=== PATIENT | female | born 1940 | race Caucasian/White ===

== ENCOUNTER 2023-07-21 10:19 | Inpatient (IN) | payer OTHER ==
[2023-07-21 11:54] LABS: VENOUS BASE EXCESS 6.5 mmol/L (-2-2); VENOUS O2 SATURATION 83.1 % (70-80); VENOUS PH 7.263 (7.310-7.410)
[2023-07-21 11:59] LABS: VENOUS PCO2 80.1 mmHg (38-52)
[2023-07-21] MEDS ORDERED: methylPREDNISolone NA SUCC 125 MG/2 ML VIAL IVPUSH ONE (12:02)
[2023-07-21] MEDS ORDERED: methylPREDNISolone NA SUCC 125 MG/2 ML VIAL ONE ×2 (12:13→12:17)
[2023-07-21] MEDS ORDERED: ALBUTEROL SO4 2.5/IPRATROPIUM 0.5 INH SOL 3 ML VIAL.NEB. NEB ONE ×2 (12:13→12:34)
[2023-07-21 12:16] LABS: POTASSIUM 4.4 mmol/L (3.5-5.1)
[2023-07-21 12:21] LABS: ALBUMIN 3.3 g/dl (3.4-5.0); BASO % 0.6 % (0-2.0); CALCIUM 8.6 mg/dL (8.5-10.1); HEMOGLOBIN 10.3 GM/dL (10.7-15.3); LYMPH % 6.2 % (8-40); MCH 27.6 pg (25.7-33.7); MCHC 31.2 g/dl (32.0-36.0); MEAN CELL VOLUME 88.4 fl (80-96); MEAN PLT VOLUME 8.4 fl (7.5-11.1); MONO % 7.7 % (3.8-10.2); NEUT % 85.5 % (42.8-82.8); PLATELET COUNT 335 10^3/uL (134-434); RBC 3.74 M/mm3 (3.60-5.2); WHITE BLOOD COUNT 14.3 K/mm3 (4.0-10.0)
[2023-07-21] MEDS: ALBUTEROL SO4 2.5/IPRATROPIUM 0.5 INH SOL 3 ML VIAL.NEB. NEB SCH ×3 (12:23→13:29)
[2023-07-21 12:24] LABS: CREATININE 0.6 mg/dL (0.55-1.3)
[2023-07-21 12:26] LABS: BILIRUBIN,TOTAL 0.2 mg/dL (0.2-1); TOT PROT 6.3 g/dl (6.4-8.2)
[2023-07-21 15:49] LABS: INR 1.1 (0.83-1.09); PROTHROMBIN TIME (PATIENT) 12.7 SEC (9.7-13.0)
[2023-07-21 15:50] LABS: EPI CELLS >36 /uL (0-25.1); HYALINE CASTS 1 /uL (0-3.1); PH,URINE 5.5 (5.0-8.0); URINE APPEARANCE CLEAR; URINE BACTERIA 715 /uL (0-1359); URINE BILIRUBIN NEGATIVE (NEGATIVE); URINE COLOR YELLOW; URINE GLUCOSE (UA) NEGATIVE (NEGATIVE); URINE KETONE TRACE (NEGATIVE); URINE LEUK ESTERASE TRACE (NEGATIVE); URINE NITRITE NEGATIVE (NEGATIVE); URINE PROTEIN 1+ (NEGATIVE); URINE RBC 8 /uL (0-23.9); URINE UROBILINOGEN 0.2 mg/dL (0.2-1.0); URINE WBC 75 /uL (0-25.8)
[2023-07-21 16:48] LABS: VENOUS BASE EXCESS 6.4 mmol/L (-2-2); VENOUS O2 SATURATION 43.8 % (70-80)
[2023-07-21 16:51] LABS: VENOUS PH 7.139 (7.310-7.410)
[2023-07-21 16:52] LABS: VENOUS PCO2 116.7 mmHg (38-52)
[2023-07-21] MEDS ORDERED: RAPID SEQUENCE INTUBATION KIT NR ONE (17:02)
[2023-07-21] MEDS ORDERED: MIDAZOLAM IN 0.9 % SOD.CHLORID 1 MG/1 ML PLAST..BAG ONE (17:28)
[2023-07-21] MEDS ORDERED: MIDAZOLAM 100 MG in SODIUM CHLORIDE 100 ML IVPB SCH (17:45)
[2023-07-21] MEDS ORDERED: ETOMIDATE 40 MG/20 ML VIAL IVPUSH ONE (17:59)
[2023-07-21] MEDS ORDERED: SUCCINYLCHOLINE CHLORIDE 200 MG/10 ML VIAL IVPUSH ONE (18:00)
[2023-07-21] MEDS: FENTANYL NS IVPB 500 MCG/100 ML BAG IVPB SCH (18:20)
[2023-07-21] MEDS: MIDAZOLAM IN 0.9 % SOD.CHLORID 100 MG/100 ML PLAST..BAG IVPB SCH ×2 (18:22→19:05)
[2023-07-21] MEDS ORDERED: CEFTRIAXONE 1 GM in DEXTROSE 5%-WATER - 50 ML IVPB ONE (18:45)
[2023-07-21] MEDS ORDERED: AZITHROMYCIN IVPB 500 MG/250 ML BAG IVPB ONE (18:46)
[2023-07-21 19:38] LABS: URINE CRYSTALS FEW /hpf
[2023-07-21] MEDS: ALBUTEROL SO4 0.083% IH SOL 2.5 MG/3 ML VIAL.NEB. NEB SCH ×2 (20:46→23:42)
[2023-07-21 21:19] LABS: ARTERIAL BLD GAS O2 SATURATION 98.5 % (95-98); ARTERIAL BLOOD GAS BASE EXCESS 2.1 mmol/L (-2-2); ARTERIAL BLOOD GAS PO2 141.8 mmHg (80-100); ARTERIAL BLOOD GAS pH 7.304 (7.350-7.450)
[2023-07-21] MEDS: MUPIROCIN 2% TOPICAL OINTMENT FOR DECOLONIZATION NS SCH (21:20)
[2023-07-21] MEDS: methylPREDNISolone NA SUCC 40 MG/1 ML VIAL IVPUSH SCH (21:20)
[2023-07-21] MEDS: APIXABAN 5 MG TABLET PO SCH (21:20)
[2023-07-21] MEDS: CHLORHEXIDINE GLUCONATE 4% CLEANSER FOR DECOLONIZATION TP SCH (21:21)
[2023-07-21 21:22] LABS: VENT MODE A/C; VENT RATE 12
[2023-07-21] MEDS ORDERED: HEPARIN NA (PORCINE) 5,000 UNITS/ML 1ML VIAL SQ SCH (22:00)
[2023-07-22] MEDS: methylPREDNISolone NA SUCC 40 MG/1 ML VIAL IVPUSH SCH ×4 (02:37→21:34)
[2023-07-22] MEDS: ALBUTEROL SO4 0.083% IH SOL 2.5 MG/3 ML VIAL.NEB. NEB SCH ×5 (05:02→20:00)
[2023-07-22 07:13] LABS: ARTERIAL BLD GAS O2 SATURATION 93.9 % (95-98); ARTERIAL BLOOD GAS BASE EXCESS 2.9 mmol/L (-2-2); ARTERIAL BLOOD GAS PO2 68.6 mmHg (80-100); ARTERIAL BLOOD GAS pH 7.415 (7.350-7.450)
[2023-07-22 07:27] LABS: BASO % 0.1 % (0-2.0); HEMATOCRIT 27.9 % (32.4-45.2); HEMOGLOBIN 8.8 GM/dL (10.7-15.3); LYMPH % 6.8 % (8-40); MCH 27.8 pg (25.7-33.7); MCHC 31.6 g/dl (32.0-36.0); MEAN CELL VOLUME 87.9 fl (80-96); MEAN PLT VOLUME 8.3 fl (7.5-11.1); MONO % 4.2 % (3.8-10.2); NEUT % 88.9 % (42.8-82.8); PLATELET COUNT 275 10^3/uL (134-434); RBC 3.18 M/mm3 (3.60-5.2); RDW 14.7 % (11.6-15.6); WHITE BLOOD COUNT 5.8 K/mm3 (4.0-10.0)
[2023-07-22 07:45] LABS: POTASSIUM 3.9 mmol/L (3.5-5.1)
[2023-07-22 07:47] LABS: CALCIUM 8.3 mg/dL (8.5-10.1)
[2023-07-22 07:48] LABS: ALBUMIN 2.9 g/dl (3.4-5.0); BLOOD UREA NITROGEN 22.6 mg/dL (7-18)
[2023-07-22 07:51] LABS: CREATININE 0.6 mg/dL (0.55-1.3); PHOSPHOROUS 2.3 mg/dL (2.5-4.9)
[2023-07-22 07:52] LABS: BILIRUBIN,TOTAL 0.2 mg/dL (0.2-1); TOT PROT 5.4 g/dl (6.4-8.2)
[2023-07-22] MEDS: APIXABAN 5 MG TABLET PO SCH ×2 (09:15→21:34)
[2023-07-22] MEDS: PANTOPRAZOLE SODIUM 40 MG VIAL IVPUSH SCH (09:15)
[2023-07-22] MEDS: FENTANYL NS IVPB 500 MCG/100 ML BAG IVPB SCH (09:16)
[2023-07-22] MEDS: MIDAZOLAM IN 0.9 % SOD.CHLORID 100 MG/100 ML PLAST..BAG IVPB SCH (09:16)
[2023-07-22] MEDS: MUPIROCIN 2% TOPICAL OINTMENT FOR DECOLONIZATION NS SCH ×2 (09:18→21:34)
[2023-07-22] MEDS: DEXMEDETOMIDINE PREMIX 400 MCG/100 ML BAG IVPB SCH ×2 (12:02→21:44)
[2023-07-22] MEDS: AZITHROMYCIN IVPB 500 MG/250 ML BAG IVPB SCH (17:01)
[2023-07-22] MEDS: CHLORHEXIDINE GLUCONATE 4% CLEANSER FOR DECOLONIZATION TP SCH (21:34)
[2023-07-23] MEDS: methylPREDNISolone NA SUCC 40 MG/1 ML VIAL IVPUSH SCH ×4 (02:48→21:17)
[2023-07-23] MEDS: ALBUTEROL SO4 0.083% IH SOL 2.5 MG/3 ML VIAL.NEB. NEB SCH ×6 (04:16→20:57)
[2023-07-23 05:10] LABS: ARTERIAL BLD GAS O2 SATURATION 93.7 % (95-98); ARTERIAL BLOOD GAS BASE EXCESS 7.1 mmol/L (-2-2); ARTERIAL BLOOD GAS PO2 72.2 mmHg (80-100); ARTERIAL BLOOD GAS pH 7.369 (7.350-7.450)
[2023-07-23 05:12] LABS: ALLENS TEST POSITIVE
[2023-07-23 07:17] LABS: HEMOGLOBIN 9.4 GM/dL (10.7-15.3); MCH 27.4 pg (25.7-33.7); MCHC 31.2 g/dl (32.0-36.0); MEAN CELL VOLUME 87.6 fl (80-96); MEAN PLT VOLUME 8.2 fl (7.5-11.1); PLATELET COUNT 290 10^3/uL (134-434); RBC 3.42 M/mm3 (3.60-5.2); RDW 14.7 % (11.6-15.6); WHITE BLOOD COUNT 19.5 K/mm3 (4.0-10.0)
[2023-07-23 07:20] LABS: CALCIUM 8.2 mg/dL (8.5-10.1)
[2023-07-23 07:21] LABS: BLOOD UREA NITROGEN 27.9 mg/dL (7-18); MAGNESIUM 2.2 mg/dL (1.8-2.4)
[2023-07-23 07:24] LABS: CREATININE 0.6 mg/dL (0.55-1.3); PHOSPHOROUS 3.8 mg/dL (2.5-4.9)
[2023-07-23] MEDS: PANTOPRAZOLE SODIUM 40 MG VIAL IVPUSH SCH (09:15)
[2023-07-23] MEDS: MUPIROCIN 2% TOPICAL OINTMENT FOR DECOLONIZATION NS SCH ×2 (09:15→21:18)
[2023-07-23] MEDS: APIXABAN 5 MG TABLET PO SCH ×2 (09:48→21:18)
[2023-07-23] MEDS ORDERED: ALBUTEROL SO4 2.5/IPRATROPIUM 0.5 INH SOL 3 ML VIAL.NEB. NEB PRN (09:50)
[2023-07-23] MEDS ORDERED: FUROSEMIDE 40 MG/4 ML INJECTABLE VIAL IVPUSH ONE (10:15)
[2023-07-23] MEDS ORDERED: METOPROLOL TARTRATE 5 MG/5 ML VIAL ONE (14:19)
[2023-07-23] MEDS ORDERED: METOPROLOL TARTRATE 5 MG/5 ML VIAL IVPUSH ONE (14:30)
[2023-07-23] MEDS: METOPROLOL TARTRATE 25 MG TABLET (FP) PO SCH ×2 (14:35→21:18)
[2023-07-23] MEDS: AZITHROMYCIN IVPB 500 MG/250 ML BAG IVPB SCH (17:04)
[2023-07-23] MEDS: CHLORHEXIDINE GLUCONATE 4% CLEANSER FOR DECOLONIZATION TP SCH (21:18)
[2023-07-24] MEDS ORDERED: PROMETHAZINE HCL 25 MG/1 ML VIAL IVPB ONE (02:08)
[2023-07-24] MEDS: ALBUTEROL SO4 0.083% IH SOL 2.5 MG/3 ML VIAL.NEB. NEB SCH ×4 (04:00→11:35)
[2023-07-24 07:41] LABS: POTASSIUM 3.7 mmol/L (3.5-5.1)
[2023-07-24 07:43] LABS: CALCIUM 8.4 mg/dL (8.5-10.1)
[2023-07-24 07:44] LABS: BLOOD UREA NITROGEN 27.3 mg/dL (7-18); MAGNESIUM 2.1 mg/dL (1.8-2.4)
[2023-07-24 07:45] LABS: HEMATOCRIT 29.4 % (32.4-45.2); HEMOGLOBIN 9.1 GM/dL (10.7-15.3); MCHC 31.1 g/dl (32.0-36.0); MEAN CELL VOLUME 86.9 fl (80-96); MEAN PLT VOLUME 8.4 fl (7.5-11.1); PLATELET COUNT 302 10^3/uL (134-434); RBC 3.38 M/mm3 (3.60-5.2); RDW 14.6 % (11.6-15.6); WHITE BLOOD COUNT 23.1 K/mm3 (4.0-10.0)
[2023-07-24 07:47] LABS: CREATININE 0.6 mg/dL (0.55-1.3); PHOSPHOROUS 3.6 mg/dL (2.5-4.9)
[2023-07-24 07:48] LABS: BILIRUBIN,TOTAL 0.3 mg/dL (0.2-1); TOT PROT 5.6 g/dl (6.4-8.2)
[2023-07-24] MEDS: APIXABAN 5 MG TABLET PO SCH ×2 (09:32→22:09)
[2023-07-24] MEDS: METOPROLOL TARTRATE 25 MG TABLET (FP) PO SCH ×2 (09:32→22:09)
[2023-07-24] MEDS: methylPREDNISolone NA SUCC 40 MG/1 ML VIAL IVPUSH SCH ×2 (09:32→22:05)
[2023-07-24] MEDS: PANTOPRAZOLE SODIUM 40 MG VIAL IVPUSH SCH (09:33)
[2023-07-24] MEDS: MUPIROCIN 2% TOPICAL OINTMENT FOR DECOLONIZATION NS SCH (09:34)
[2023-07-24 10:06] LABS: ANISOCYTOSIS 2+; MACROCYTOSIS 0
[2023-07-24] MEDS ORDERED: ALBUTEROL SO4 0.083% IH SOL 2.5 MG/3 ML VIAL.NEB. NEB PRN (12:24)
[2023-07-24] MEDS: ALBUTEROL SO4 2.5/IPRATROPIUM 0.5 INH SOL 3 ML VIAL.NEB. NEB SCH ×2 (14:33→20:48)
[2023-07-24] MEDS: AZITHROMYCIN IVPB 500 MG/250 ML BAG IVPB SCH (17:19)
[2023-07-24] MEDS: DOCUSATE SODIUM 100 MG CAPSULE (FP) PO SCH (17:23)
[2023-07-24] MEDS ORDERED: FUROSEMIDE 40 MG/4 ML INJECTABLE VIAL IVPUSH ONE (17:29)
[2023-07-24] MEDS ORDERED: MELATONIN 5 MG TABLETS PO PRN (17:46)
[2023-07-24] MEDS: POLYETHYLENE GLYCOL (HEALTHYLAX) 3350 17 GM PACKET PO SCH (18:03)
[2023-07-25] MEDS: ALBUTEROL SO4 2.5/IPRATROPIUM 0.5 INH SOL 3 ML VIAL.NEB. NEB SCH ×3 (07:52→21:15)
[2023-07-25] MEDS: PANTOPRAZOLE SODIUM 40 MG VIAL IVPUSH SCH (10:09)
[2023-07-25] MEDS: POLYETHYLENE GLYCOL (HEALTHYLAX) 3350 17 GM PACKET PO SCH (10:09)
[2023-07-25] MEDS: METOPROLOL TARTRATE 25 MG TABLET (FP) PO SCH ×2 (10:09→22:22)
[2023-07-25] MEDS: APIXABAN 5 MG TABLET PO SCH ×2 (10:09→22:22)
[2023-07-25] MEDS: DOCUSATE SODIUM 100 MG CAPSULE (FP) PO SCH (10:09)
[2023-07-25] MEDS: methylPREDNISolone NA SUCC 40 MG/1 ML VIAL IVPUSH SCH ×2 (10:11→22:22)
[2023-07-25 12:07] LABS: HEMATOCRIT 32.1 % (32.4-45.2); HEMOGLOBIN 9.7 GM/dL (10.7-15.3); LYMPH % 5.9 % (8-40); MCH 26.2 pg (25.7-33.7); MCHC 30.1 g/dl (32.0-36.0); MEAN PLT VOLUME 8.6 fl (7.5-11.1); MONO % 8.5 % (3.8-10.2); NEUT % 85.6 % (42.8-82.8); PLATELET COUNT 332 10^3/uL (134-434); RDW 14.7 % (11.6-15.6); WHITE BLOOD COUNT 18.3 K/mm3 (4.0-10.0)
[2023-07-25 12:27] LABS: CALCIUM 8.9 mg/dL (8.5-10.1)
[2023-07-25 12:28] LABS: ALBUMIN 3.3 g/dl (3.4-5.0); BLOOD UREA NITROGEN 21.4 mg/dL (7-18); MAGNESIUM 2.4 mg/dL (1.8-2.4)
[2023-07-25 12:31] LABS: CREATININE 0.6 mg/dL (0.55-1.3); PHOSPHOROUS 3.3 mg/dL (2.5-4.9)
[2023-07-25 12:33] LABS: BILIRUBIN,TOTAL 0.5 mg/dL (0.2-1); TOT PROT 6.1 g/dl (6.4-8.2)
[2023-07-25 14:42] LABS: ARTERIAL BLD GAS O2 SATURATION 87.3 % (95-98); ARTERIAL BLOOD GAS BASE EXCESS 10.3 mmol/L (-2-2); ARTERIAL BLOOD GAS PO2 52.2 mmHg (80-100); ARTERIAL BLOOD GAS pH 7.436 (7.350-7.450)
[2023-07-25 14:43] LABS: ALLENS TEST POSITIVE
[2023-07-25] MEDS ORDERED: TRIMETHOBENZAMIDE HCL 200MG/2ML INJ IM ONE (16:48)
[2023-07-25] MEDS ORDERED: AZITHROMYCIN IVPB 500 MG/250 ML BAG IVPB SCH (18:00)
[2023-07-26 07:40] LABS: HEMATOCRIT 29.2 % (32.4-45.2); HEMOGLOBIN 9.1 GM/dL (10.7-15.3); MCH 27.1 pg (25.7-33.7); MCHC 31.3 g/dl (32.0-36.0); MEAN CELL VOLUME 86.5 fl (80-96); MEAN PLT VOLUME 8.9 fl (7.5-11.1); PLATELET COUNT 266 10^3/uL (134-434); RBC 3.37 M/mm3 (3.60-5.2); RDW 14.4 % (11.6-15.6); WHITE BLOOD COUNT 11.6 K/mm3 (4.0-10.0)
[2023-07-26 07:58] LABS: CHLORIDE 96 mmol/L (98-107); POTASSIUM 4.1 mmol/L (3.5-5.1); SODIUM 137 mmol/L (136-145)
[2023-07-26 08:00] LABS: CALCIUM 8.3 mg/dL (8.5-10.1)
[2023-07-26] MEDS: ALBUTEROL SO4 2.5/IPRATROPIUM 0.5 INH SOL 3 ML VIAL.NEB. NEB SCH ×3 (08:00→19:51)
[2023-07-26 08:01] LABS: ANION GAP 0 mmol/L (4-13); CO2 41 mmol/L (21-32); GLUCOSE,RANDOM 142 mg/dL (74-106); MAGNESIUM 2.2 mg/dL (1.8-2.4)
[2023-07-26 08:04] LABS: ALBUMIN 2.8 g/dl (3.4-5.0); BLOOD UREA NITROGEN 17.4 mg/dL (7-18); CREATININE 0.4 mg/dL (0.55-1.3); PHOSPHOROUS 4.2 mg/dL (2.5-4.9); SGOT/AST 14 U/L (15-37); SGPT/ALT 15 U/L (13-61)
[2023-07-26 08:05] LABS: BILIRUBIN,TOTAL 0.5 mg/dL (0.2-1)
[2023-07-26 08:06] LABS: TOT PROT 5.2 g/dl (6.4-8.2)
[2023-07-26 08:07] LABS: ALK PHOS 42 U/L (45-117)
[2023-07-26 09:29] LABS: ANISOCYTOSIS 0; MACROCYTOSIS 0
[2023-07-26] MEDS: POLYETHYLENE GLYCOL (HEALTHYLAX) 3350 17 GM PACKET PO SCH (10:10)
[2023-07-26] MEDS: DOCUSATE SODIUM 100 MG CAPSULE (FP) PO SCH (10:11)
[2023-07-26] MEDS: methylPREDNISolone NA SUCC 40 MG/1 ML VIAL IVPUSH SCH ×2 (10:11→21:16)
[2023-07-26] MEDS: METOPROLOL TARTRATE 25 MG TABLET (FP) PO SCH ×2 (10:11→21:16)
[2023-07-26] MEDS: PANTOPRAZOLE SODIUM 40 MG VIAL IVPUSH SCH (10:11)
[2023-07-26] MEDS: APIXABAN 5 MG TABLET PO SCH ×2 (10:12→21:16)
[2023-07-26 20:45] LABS: CHOLESTEROL 164 mg/dL (50-200)
[2023-07-26 20:47] LABS: LDL CHOLESTEROL (ONLY SJRH) 95 mg/dL (5-100)
[2023-07-26 20:48] LABS: HDL CHOLESTEROL 54 mg/dL (40-60)
[2023-07-27 07:06] LABS: BASO % 0.1 % (0-2.0); EOS % 0.1 % (0-4.5); HEMATOCRIT 30.4 % (32.4-45.2); HEMOGLOBIN 9.5 GM/dL (10.7-15.3); LYMPH % 4.6 % (8-40); MCH 26.9 pg (25.7-33.7); MCHC 31.4 g/dl (32.0-36.0); MEAN CELL VOLUME 85.6 fl (80-96); MEAN PLT VOLUME 8.6 fl (7.5-11.1); NEUT % 88.2 % (42.8-82.8); PLATELET COUNT 269 10^3/uL (134-434); RBC 3.55 M/mm3 (3.60-5.2); RDW 14.4 % (11.6-15.6); WHITE BLOOD COUNT 10.3 K/mm3 (4.0-10.0)
[2023-07-27] MEDS: ALBUTEROL SO4 2.5/IPRATROPIUM 0.5 INH SOL 3 ML VIAL.NEB. NEB SCH ×3 (07:15→20:40)
[2023-07-27 07:17] LABS: POTASSIUM 4.2 mmol/L (3.5-5.1)
[2023-07-27 07:23] LABS: CALCIUM 8.2 mg/dL (8.5-10.1)
[2023-07-27 07:24] LABS: ALBUMIN 2.7 g/dl (3.4-5.0); BLOOD UREA NITROGEN 18.4 mg/dL (7-18); MAGNESIUM 2.1 mg/dL (1.8-2.4)
[2023-07-27 07:27] LABS: CREATININE 0.4 mg/dL (0.55-1.3); PHOSPHOROUS 3.9 mg/dL (2.5-4.9)
[2023-07-27 07:29] LABS: BILIRUBIN,TOTAL 0.5 mg/dL (0.2-1)
[2023-07-27] MEDS: APIXABAN 5 MG TABLET PO SCH ×2 (10:23→21:32)
[2023-07-27] MEDS: METOPROLOL TARTRATE 25 MG TABLET (FP) PO SCH ×2 (10:23→21:32)
[2023-07-27] MEDS: DOCUSATE SODIUM 100 MG CAPSULE (FP) PO SCH (10:23)
[2023-07-27] MEDS: POLYETHYLENE GLYCOL (HEALTHYLAX) 3350 17 GM PACKET PO SCH (10:24)
[2023-07-27] MEDS: methylPREDNISolone NA SUCC 40 MG/1 ML VIAL IVPUSH SCH ×2 (10:24→21:32)
[2023-07-27] MEDS: PANTOPRAZOLE SODIUM 40 MG VIAL IVPUSH SCH (10:24)
[2023-07-27] MEDS: TRIAMCINOLONE ACET 0.025% CREAM 15 GM TUBE TP SCH ×2 (12:24→22:23)
[2023-07-28 07:38] LABS: BASO % 0.1 % (0-2.0); HEMATOCRIT 29.6 % (32.4-45.2); HEMOGLOBIN 9.6 GM/dL (10.7-15.3); LYMPH % 5.8 % (8-40); MCH 27.3 pg (25.7-33.7); MCHC 32.6 g/dl (32.0-36.0); MEAN CELL VOLUME 83.7 fl (80-96); MEAN PLT VOLUME 9.1 fl (7.5-11.1); MONO % 7.2 % (3.8-10.2); NEUT % 86.9 % (42.8-82.8); PLATELET COUNT 273 10^3/uL (134-434); RBC 3.54 M/mm3 (3.60-5.2); RDW 14.8 % (11.6-15.6); WHITE BLOOD COUNT 12.1 K/mm3 (4.0-10.0)
[2023-07-28] MEDS: ALBUTEROL SO4 2.5/IPRATROPIUM 0.5 INH SOL 3 ML VIAL.NEB. NEB SCH ×3 (09:10→20:00)
[2023-07-28 09:16] LABS: POTASSIUM 3.9 mmol/L (3.5-5.1)
[2023-07-28 09:22] LABS: CALCIUM 8.7 mg/dL (8.5-10.1)
[2023-07-28 09:23] LABS: ALBUMIN 2.8 g/dl (3.4-5.0)
[2023-07-28 09:26] LABS: CREATININE 0.5 mg/dL (0.55-1.3)
[2023-07-28 09:27] LABS: BILIRUBIN,TOTAL 0.4 mg/dL (0.2-1)
[2023-07-28] MEDS: DOCUSATE SODIUM 100 MG CAPSULE (FP) PO SCH (10:05)
[2023-07-28] MEDS: PANTOPRAZOLE SODIUM 40 MG VIAL IVPUSH SCH (10:05)
[2023-07-28] MEDS: methylPREDNISolone NA SUCC 40 MG/1 ML VIAL IVPUSH SCH (10:05)
[2023-07-28] MEDS: METOPROLOL TARTRATE 25 MG TABLET (FP) PO SCH ×2 (10:05→22:21)
[2023-07-28] MEDS: POLYETHYLENE GLYCOL (HEALTHYLAX) 3350 17 GM PACKET PO SCH (10:06)
[2023-07-28] MEDS: APIXABAN 5 MG TABLET PO SCH ×2 (10:06→22:21)
[2023-07-28] MEDS ORDERED: ACETAMINOPHEN 325 MG TABLET (FP) PO PRN (10:12)
[2023-07-28] MEDS ORDERED: methylPREDNISolone NA SUCC 40 MG/1 ML VIAL IVPUSH SCH (10:15)
[2023-07-28] MEDS: TRIAMCINOLONE ACET 0.025% CREAM 15 GM TUBE TP SCH ×2 (10:18→22:21)
[2023-07-29 07:45] LABS: BASO % 0.5 % (0-2.0); EOS % 0.8 % (0-4.5); HEMATOCRIT 31.6 % (32.4-45.2); LYMPH % 13.7 % (8-40); MCH 27.5 pg (25.7-33.7); MCHC 31.7 g/dl (32.0-36.0); MEAN CELL VOLUME 86.9 fl (80-96); MEAN PLT VOLUME 9.2 fl (7.5-11.1); MONO % 11.1 % (3.8-10.2); NEUT % 73.9 % (42.8-82.8); PLATELET COUNT 306 10^3/uL (134-434); RBC 3.63 M/mm3 (3.60-5.2); RDW 14.6 % (11.6-15.6); WHITE BLOOD COUNT 15.1 K/mm3 (4.0-10.0)
[2023-07-29 07:56] LABS: POTASSIUM 3.7 mmol/L (3.5-5.1)
[2023-07-29 08:10] LABS: CALCIUM 8.7 mg/dL (8.5-10.1)
[2023-07-29 08:11] LABS: ALBUMIN 2.9 g/dl (3.4-5.0); BLOOD UREA NITROGEN 15.3 mg/dL (7-18); MAGNESIUM 1.9 mg/dL (1.8-2.4)
[2023-07-29 08:13] LABS: CREATININE 0.5 mg/dL (0.55-1.3)
[2023-07-29 08:15] LABS: BILIRUBIN,TOTAL 0.2 mg/dL (0.2-1); TOT PROT 5.4 g/dl (6.4-8.2)
[2023-07-29] MEDS: ALBUTEROL SO4 2.5/IPRATROPIUM 0.5 INH SOL 3 ML VIAL.NEB. NEB SCH ×3 (09:24→20:35)
[2023-07-29] MEDS: POLYETHYLENE GLYCOL (HEALTHYLAX) 3350 17 GM PACKET PO SCH (10:24)
[2023-07-29] MEDS: DOCUSATE SODIUM 100 MG CAPSULE (FP) PO SCH (10:24)
[2023-07-29] MEDS: METOPROLOL TARTRATE 25 MG TABLET (FP) PO SCH (10:24)
[2023-07-29] MEDS: APIXABAN 5 MG TABLET PO SCH ×2 (10:24→22:44)
[2023-07-29] MEDS: methylPREDNISolone NA SUCC 40 MG/1 ML VIAL IVPUSH SCH (10:24)
[2023-07-29] MEDS: PANTOPRAZOLE SODIUM 40 MG VIAL IVPUSH SCH (10:24)
[2023-07-29] MEDS: TRIAMCINOLONE ACET 0.025% CREAM 15 GM TUBE TP SCH ×2 (10:26→22:46)
[2023-07-29] MEDS: metoPROLOL SUCCINATE 25 MG TAB.SR.24H (FP) PO SCH (22:44)
[2023-07-29] MEDS: SACUBITRIL/VALSARTAN 24 MG-26 MG TABLET PO SCH (22:45)
[2023-07-30 07:21] LABS: POTASSIUM 3.7 mmol/L (3.5-5.1)
[2023-07-30 07:23] LABS: BLOOD UREA NITROGEN 12.6 mg/dL (7-18); CALCIUM 8.3 mg/dL (8.5-10.1)
[2023-07-30 07:27] LABS: CREATININE 0.4 mg/dL (0.55-1.3)
[2023-07-30] MEDS: ALBUTEROL SO4 2.5/IPRATROPIUM 0.5 INH SOL 3 ML VIAL.NEB. NEB SCH ×3 (07:30→21:17)
[2023-07-30] MEDS: PANTOPRAZOLE SODIUM 40 MG VIAL IVPUSH SCH (10:13)
[2023-07-30] MEDS: metoPROLOL SUCCINATE 25 MG TAB.SR.24H (FP) PO SCH ×2 (10:13→21:45)
[2023-07-30] MEDS: SACUBITRIL/VALSARTAN 24 MG-26 MG TABLET PO SCH ×2 (10:13→21:45)
[2023-07-30] MEDS: TRIAMCINOLONE ACET 0.025% CREAM 15 GM TUBE TP SCH ×2 (10:13→21:51)
[2023-07-30] MEDS: APIXABAN 5 MG TABLET PO SCH ×2 (10:13→21:45)
[2023-07-30] MEDS: POLYETHYLENE GLYCOL (HEALTHYLAX) 3350 17 GM PACKET PO SCH (10:13)
[2023-07-30] MEDS: methylPREDNISolone NA SUCC 40 MG/1 ML VIAL IVPUSH SCH (10:13)
[2023-07-30] MEDS: DOCUSATE SODIUM 100 MG CAPSULE (FP) PO SCH (10:13)
[2023-07-30] MEDS ORDERED: POTASSIUM CHLORIDE TABS 10 MEQ TABLET.ER (FP) PO ONE ×2 (10:33)
[2023-07-30] MEDS: dilTIAZem HCL 30 MG TABLET PO SCH ×2 (14:57→21:45)
[2023-07-31] MEDS: dilTIAZem HCL 30 MG TABLET PO SCH ×3 (05:56→21:34)
[2023-07-31] MEDS: ALBUTEROL SO4 2.5/IPRATROPIUM 0.5 INH SOL 3 ML VIAL.NEB. NEB SCH ×3 (07:10→20:31)
[2023-07-31 07:57] LABS: POTASSIUM 4.3 mmol/L (3.5-5.1)
[2023-07-31 08:00] LABS: CALCIUM 8.8 mg/dL (8.5-10.1)
[2023-07-31 08:01] LABS: BLOOD UREA NITROGEN 14.5 mg/dL (7-18); MAGNESIUM 1.8 mg/dL (1.8-2.4)
[2023-07-31 08:04] LABS: CREATININE 0.5 mg/dL (0.55-1.3)
[2023-07-31] MEDS: DOCUSATE SODIUM 100 MG CAPSULE (FP) PO SCH (09:26)
[2023-07-31] MEDS: APIXABAN 5 MG TABLET PO SCH ×2 (09:26→21:35)
[2023-07-31] MEDS: SACUBITRIL/VALSARTAN 24 MG-26 MG TABLET PO SCH ×2 (09:26→21:34)
[2023-07-31] MEDS: methylPREDNISolone NA SUCC 40 MG/1 ML VIAL IVPUSH SCH (09:26)
[2023-07-31] MEDS: POLYETHYLENE GLYCOL (HEALTHYLAX) 3350 17 GM PACKET PO SCH (09:26)
[2023-07-31] MEDS: metoPROLOL SUCCINATE 25 MG TAB.SR.24H (FP) PO SCH ×2 (09:26→21:35)
[2023-07-31] MEDS: PANTOPRAZOLE SODIUM 40 MG VIAL IVPUSH SCH (09:27)
[2023-07-31] MEDS: TRIAMCINOLONE ACET 0.025% CREAM 15 GM TUBE TP SCH ×2 (09:27→21:34)
[2023-08-01] MEDS: dilTIAZem HCL 30 MG TABLET PO SCH ×3 (05:58→21:33)
[2023-08-01] MEDS: ALBUTEROL SO4 2.5/IPRATROPIUM 0.5 INH SOL 3 ML VIAL.NEB. NEB SCH ×3 (07:40→20:53)
[2023-08-01 08:12] LABS: POTASSIUM 3.9 mmol/L (3.5-5.1)
[2023-08-01 08:14] LABS: HEMOGLOBIN 10.8 GM/dL (10.7-15.3); MCH 27.1 pg (25.7-33.7); MCHC 31.8 g/dl (32.0-36.0); MEAN CELL VOLUME 85.3 fl (80-96); MEAN PLT VOLUME 9.5 fl (7.5-11.1); PLATELET COUNT 364 10^3/uL (134-434); RBC 3.98 M/mm3 (3.60-5.2); RDW 14.9 % (11.6-15.6); WHITE BLOOD COUNT 18.4 K/mm3 (4.0-10.0)
[2023-08-01 08:15] LABS: CALCIUM 8.8 mg/dL (8.5-10.1)
[2023-08-01 08:19] LABS: CREATININE 0.5 mg/dL (0.55-1.3); PHOSPHOROUS 3.4 mg/dL (2.5-4.9)
[2023-08-01 08:20] LABS: TOT PROT 5.7 g/dl (6.4-8.2)
[2023-08-01 08:21] LABS: BILIRUBIN,TOTAL 0.3 mg/dL (0.2-1)
[2023-08-01 09:03] LABS: ANISOCYTOSIS 1+; MACROCYTOSIS 0
[2023-08-01] MEDS: PANTOPRAZOLE SODIUM 40 MG VIAL IVPUSH SCH (09:58)
[2023-08-01] MEDS: DOCUSATE SODIUM 100 MG CAPSULE (FP) PO SCH (09:58)
[2023-08-01] MEDS: SACUBITRIL/VALSARTAN 24 MG-26 MG TABLET PO SCH ×2 (09:58→21:33)
[2023-08-01] MEDS: POLYETHYLENE GLYCOL (HEALTHYLAX) 3350 17 GM PACKET PO SCH (09:58)
[2023-08-01] MEDS: methylPREDNISolone NA SUCC 40 MG/1 ML VIAL IVPUSH SCH (09:58)
[2023-08-01] MEDS: metoPROLOL SUCCINATE 25 MG TAB.SR.24H (FP) PO SCH ×2 (09:58→21:33)
[2023-08-01] MEDS: APIXABAN 5 MG TABLET PO SCH ×2 (09:58→21:34)
[2023-08-01] MEDS: TRIAMCINOLONE ACET 0.025% CREAM 15 GM TUBE TP SCH ×2 (10:01→21:34)
[2023-08-01 23:59] VITALS: BMI 22.3
[2023-08-02] MEDS: dilTIAZem HCL 30 MG TABLET PO SCH ×3 (05:34→21:13)
[2023-08-02] MEDS: ALBUTEROL SO4 2.5/IPRATROPIUM 0.5 INH SOL 3 ML VIAL.NEB. NEB SCH ×3 (07:30→20:37)
[2023-08-02 07:49] LABS: HEMATOCRIT 31.3 % (32.4-45.2); HEMOGLOBIN 9.7 GM/dL (10.7-15.3); MCHC 31.1 g/dl (32.0-36.0); MEAN CELL VOLUME 86.6 fl (80-96); MEAN PLT VOLUME 9.2 fl (7.5-11.1); PLATELET COUNT 321 10^3/uL (134-434); RBC 3.61 M/mm3 (3.60-5.2); RDW 15.2 % (11.6-15.6); WHITE BLOOD COUNT 15.4 K/mm3 (4.0-10.0)
[2023-08-02 08:00] LABS: POTASSIUM 4.1 mmol/L (3.5-5.1)
[2023-08-02 08:02] LABS: ALBUMIN 2.8 g/dl (3.4-5.0); BLOOD UREA NITROGEN 16.6 mg/dL (7-18); CALCIUM 8.3 mg/dL (8.5-10.1); MAGNESIUM 2.1 mg/dL (1.8-2.4)
[2023-08-02 08:06] LABS: CREATININE 0.5 mg/dL (0.55-1.3); PHOSPHOROUS 4.3 mg/dL (2.5-4.9)
[2023-08-02 08:07] LABS: BILIRUBIN,TOTAL 0.2 mg/dL (0.2-1); TOT PROT 5.3 g/dl (6.4-8.2)
[2023-08-02 09:10] LABS: ANISOCYTOSIS 2+; MACROCYTOSIS 0; OVALOCYTE 1+
[2023-08-02] MEDS: DOCUSATE SODIUM 100 MG CAPSULE (FP) PO SCH (10:21)
[2023-08-02] MEDS: SACUBITRIL/VALSARTAN 24 MG-26 MG TABLET PO SCH ×2 (10:21→21:12)
[2023-08-02] MEDS: APIXABAN 5 MG TABLET PO SCH ×2 (10:21→21:12)
[2023-08-02] MEDS: methylPREDNISolone NA SUCC 40 MG/1 ML VIAL IVPUSH SCH (10:21)
[2023-08-02] MEDS: PANTOPRAZOLE SODIUM 40 MG VIAL IVPUSH SCH (10:21)
[2023-08-02] MEDS: POLYETHYLENE GLYCOL (HEALTHYLAX) 3350 17 GM PACKET PO SCH (10:21)
[2023-08-02] MEDS: TRIAMCINOLONE ACET 0.025% CREAM 15 GM TUBE TP SCH ×2 (10:35→21:14)
[2023-08-02] MEDS: metoPROLOL SUCCINATE 25 MG TAB.SR.24H (FP) PO SCH ×2 (11:59→21:13)
[2023-08-02 20:45] VITALS: BP 108/66; PULSE 78; RESP 20; TEMP 98.1
[2023-08-03] MEDS ORDERED: predniSONE 40 MG, predniSONE 10 MG PO SCH (10:00)
[2023-08-05] MEDS ORDERED: predniSONE 20 MG TABLET (UD) PO SCH (10:00)
[2023-08-07] MEDS ORDERED: predniSONE 10 MG, predniSONE 20 MG PO SCH (10:00)
[2023-08-09] MEDS ORDERED: predniSONE 20 MG TABLET (UD) PO SCH (10:00)
[2023-08-11] MEDS ORDERED: predniSONE 10 MG TABLET (UD) PO SCH (10:00)
== END 2023-08-02 22:08 | DRG 208 ==
LOC: JER 10:19 → JICU 13:49 → J4W 07-24 16:52
PROVIDERS: ADMIT Internal Medicine Pulmonary Disease; ATTEND Internal Medicine
PROC: 0BH17EZ Insertion of Endotracheal Airway into Trachea, Via Natural or Artificial Opening (ICD-10-PCS; principal; 2023-07-21)
PROC: 5A1935Z Respiratory Ventilation, Less than 24 Consecutive Hours (ICD-10-PCS; 2023-07-21)
PROC: 4A133B1 Monitoring of Arterial Pressure, Peripheral, Percutaneous Approach (ICD-10-PCS; 2023-07-21)
PROC: 4A133J1 Monitoring of Arterial Pulse, Peripheral, Percutaneous Approach (ICD-10-PCS; 2023-07-21)
DX: J44.1 Chronic obstructive pulmonary disease with (acute) exacerbation (principal); J96.01 Acute respiratory failure with hypoxia; J96.02 Acute respiratory failure with hypercapnia; I50.41 Acute combined systolic (congestive) and diastolic (congestive) heart failure; I24.89 Other forms of acute ischemic heart disease; E87.29 Other acidosis; I47.29 Other ventricular tachycardia; N39.0 Urinary tract infection, site not specified; G93.49 Other encephalopathy; I11.0 Hypertensive heart disease with heart failure; J44.0 Chronic obstructive pulmonary disease with (acute) lower respiratory infection; F17.210 Nicotine dependence, cigarettes, uncomplicated; B95.2 Enterococcus as the cause of diseases classified elsewhere; D72.829 Elevated white blood cell count, unspecified; E66.9 Obesity, unspecified; Z68.22 Body mass index [BMI] 22.0-22.9, adult; J20.9 Acute bronchitis, unspecified; K59.00 Constipation, unspecified; I48.0 Paroxysmal atrial fibrillation; G47.00 Insomnia, unspecified; Z79.01 Long term (current) use of anticoagulants; Z99.81 Dependence on supplemental oxygen
CPT/HCPCS: 0241U-QW; 36415; 36600; 71045-TC-FY; 80048; 80053; 80061; 80307; 81003; 82272; 82803; 82962; 83605; 83735; 83880; 84100; 84484; 85025; 85027; 85610; 85730; 87040; 87070; 87086; 87186; 87205; 87899; 93005; 93010; 93306-TC; 94002; 94640; 97116-GP; 97162-GP; 99291

== ENCOUNTER 2023-09-18 12:45 | Inpatient (IN) | payer OTHER ==
[2023-09-18] MEDS ORDERED: DEXAMETHASONE SOD PHOSPHATE 10 MG/1 ML VIAL IVPUSH ONE (13:37)
[2023-09-18] MEDS: ALBUTEROL SO4 2.5/IPRATROPIUM 0.5 INH SOL 3 ML VIAL.NEB. NEB SCH ×4 (13:45→14:30)
[2023-09-18] MEDS ORDERED: ALBUTEROL SO4 2.5/IPRATROPIUM 0.5 INH SOL 3 ML VIAL.NEB. NEB ONE (13:57)
[2023-09-18] MEDS ORDERED: DEXAMETHASONE SOD PHOSPHATE 10 MG/1 ML VIAL ONE (13:59)
[2023-09-18 14:33] LABS: VENOUS BASE EXCESS 6.2 mmol/L (-2-2); VENOUS PH 7.238 (7.310-7.410)
[2023-09-18 14:35] LABS: HEMATOCRIT 31.2 % (32.4-45.2); HEMOGLOBIN 9.6 GM/dL (10.7-15.3); MCH 27.2 pg (25.7-33.7); MCHC 30.7 g/dl (32.0-36.0); MEAN CELL VOLUME 88.9 fl (80-96); MEAN PLT VOLUME 7.9 fl (7.5-11.1); PLATELET COUNT 369 10^3/uL (134-434); RBC 3.51 M/mm3 (3.60-5.2); RDW 16.6 % (11.6-15.6); WHITE BLOOD COUNT 18.2 K/mm3 (4.0-10.0)
[2023-09-18 14:43] LABS: INR 1.27 (0.83-1.09); PROTHROMBIN TIME (PATIENT) 14.7 SEC (9.7-13.0)
[2023-09-18 14:46] LABS: ACTIVATED PTT 29.7 SECONDS (25.2-36.5)
[2023-09-18 14:55] LABS: POTASSIUM 4.4 mmol/L (3.5-5.1)
[2023-09-18 14:57] LABS: CALCIUM 9.2 mg/dL (8.5-10.1)
[2023-09-18 14:58] LABS: ALBUMIN 3.2 g/dl (3.4-5.0); BLOOD UREA NITROGEN 7.9 mg/dL (7-18)
[2023-09-18 15:01] LABS: CREATININE 0.7 mg/dL (0.55-1.3)
[2023-09-18 15:02] LABS: TOT PROT 6.2 g/dl (6.4-8.2)
[2023-09-18 15:03] LABS: BILIRUBIN,TOTAL 0.2 mg/dL (0.2-1)
[2023-09-18] MEDS ORDERED: AZITHROMYCIN IVPB 500 MG in DEXTROSE 5%-WATER - 250 ML IVPB ONE (15:20)
[2023-09-18 15:40] LABS: ANISOCYTOSIS 0; MACROCYTOSIS 0
[2023-09-18] MEDS ORDERED: AZITHROMYCIN IVPB 500 MG/250 ML BAG IVPB ONE (16:25)
[2023-09-18] MEDS ORDERED: CEFTRIAXONE 1,000 MG in DEXTROSE 5%-WATER - 50 ML IVPB ONE (17:37)
[2023-09-18] MEDS ORDERED: dilTIAZem HCL 50 MG/10 ML - 10 ML VIAL IVPUSH ONE (18:22)
[2023-09-18] MEDS ORDERED: CEFTRIAXONE 1 GM/50 ML BAG ONE (21:10)
[2023-09-18] MEDS ORDERED: SODIUM CHLORIDE 1,000 ML IV STA (22:03)
[2023-09-18] MEDS ORDERED: SODIUM CHLORIDE 0.9% 500 ML INFUS.BAG IV ONE (22:15)
[2023-09-19] MEDS ORDERED: methylPREDNISolone NA SUCC 40 MG/1 ML VIAL ONE (02:21)
[2023-09-19] MEDS: methylPREDNISolone NA SUCC 40 MG/1 ML VIAL IVPUSH SCH ×3 (02:21→18:19)
[2023-09-19] MEDS: ALBUTEROL SO4 2.5/IPRATROPIUM 0.5 INH SOL 3 ML VIAL.NEB. NEB PRN (03:19)
[2023-09-19 07:24] LABS: HEMATOCRIT 29.7 % (32.4-45.2); HEMOGLOBIN 9.3 GM/dL (10.7-15.3); MCH 27.6 pg (25.7-33.7); MCHC 31.3 g/dl (32.0-36.0); MEAN CELL VOLUME 88.2 fl (80-96); MEAN PLT VOLUME 8.1 fl (7.5-11.1); PLATELET COUNT 323 10^3/uL (134-434); RBC 3.37 M/mm3 (3.60-5.2); RDW 16.9 % (11.6-15.6); WHITE BLOOD COUNT 8.6 K/mm3 (4.0-10.0)
[2023-09-19 07:42] LABS: POTASSIUM 4.7 mmol/L (3.5-5.1)
[2023-09-19 07:45] LABS: BLOOD UREA NITROGEN 18.6 mg/dL (7-18)
[2023-09-19 07:49] LABS: CREATININE 0.6 mg/dL (0.55-1.3); MAGNESIUM 1.9 mg/dL (1.8-2.4); PHOSPHOROUS 5.4 mg/dL (2.5-4.9)
[2023-09-19] MEDS ORDERED: MELATONIN 5 MG TABLETS PO PRN (08:46)
[2023-09-19] MEDS ORDERED: MAGNESIUM HYDROX 2400MG/30ML ORAL SUSPENSION 30 ML CUP PO PRN (08:47)
[2023-09-19 09:11] LABS: ANISOCYTOSIS 2+; MACROCYTOSIS 0
[2023-09-19] MEDS: SACUBITRIL/VALSARTAN 24 MG-26 MG TABLET PO SCH ×2 (10:00→21:54)
[2023-09-19] MEDS: CEFTRIAXONE 1 GM in DEXTROSE 5%-WATER - 50 ML IVPB SCH (11:22)
[2023-09-19] MEDS: PANTOPRAZOLE 20 MG TABLET PO SCH (11:23)
[2023-09-19] MEDS: APIXABAN 5 MG TABLET PO SCH ×2 (11:23→21:54)
[2023-09-19] MEDS: ASCORBIC ACID 500 MG TABLET (FP) PO SCH (11:23)
[2023-09-19] MEDS: AZITHROMYCIN IVPB 500 MG/250 ML BAG IVPB SCH (11:24)
[2023-09-19] MEDS: ARTIFICIAL TEARS OPHTHALMIC DROPS OU SCH ×2 (16:33→21:53)
[2023-09-19] MEDS: ESCITALOPRAM OXALATE 5 MG/5 ML PO SCH (16:33)
[2023-09-19] MEDS: DOCUSATE SODIUM 100 MG CAPSULE (FP) PO SCH (16:34)
[2023-09-19] MEDS: dilTIAZem HCL 30 MG TABLET PO SCH ×2 (16:34→21:53)
[2023-09-19] MEDS: FERROUS SO4 325 MG TABLET (FP) PO SCH (16:34)
[2023-09-19] MEDS: metoPROLOL SUCCINATE 25 MG TAB.SR.24H (FP) PO SCH ×2 (16:34→21:54)
[2023-09-19 20:31] LABS: PH,URINE 5.5 (5.0-8.0); URINE APPEARANCE CLEAR; URINE BILIRUBIN NEGATIVE (NEGATIVE); URINE COLOR YELLOW; URINE GLUCOSE (UA) NEGATIVE (NEGATIVE); URINE KETONE NEGATIVE (NEGATIVE); URINE LEUK ESTERASE NEGATIVE (NEGATIVE); URINE NITRITE NEGATIVE (NEGATIVE); URINE PROTEIN NEGATIVE (NEGATIVE); URINE UROBILINOGEN 0.2 mg/dL (0.2-1.0)
[2023-09-20] MEDS: methylPREDNISolone NA SUCC 40 MG/1 ML VIAL IVPUSH SCH ×3 (01:53→18:08)
[2023-09-20] MEDS: ARTIFICIAL TEARS OPHTHALMIC DROPS OU SCH ×3 (05:59→21:43)
[2023-09-20] MEDS: dilTIAZem HCL 30 MG TABLET PO SCH ×3 (05:59→21:42)
[2023-09-20] MEDS: PANTOPRAZOLE 20 MG TABLET PO SCH (09:33)
[2023-09-20] MEDS: FERROUS SO4 325 MG TABLET (FP) PO SCH (09:33)
[2023-09-20] MEDS: ESCITALOPRAM OXALATE 5 MG/5 ML PO SCH (09:33)
[2023-09-20] MEDS: SACUBITRIL/VALSARTAN 24 MG-26 MG TABLET PO SCH ×2 (09:33→21:42)
[2023-09-20] MEDS: APIXABAN 5 MG TABLET PO SCH (09:33)
[2023-09-20] MEDS: CEFTRIAXONE 1 GM in DEXTROSE 5%-WATER - 50 ML IVPB SCH (09:33)
[2023-09-20] MEDS: DOCUSATE SODIUM 100 MG CAPSULE (FP) PO SCH (09:34)
[2023-09-20] MEDS: metoPROLOL SUCCINATE 25 MG TAB.SR.24H (FP) PO SCH ×2 (09:34→21:42)
[2023-09-20] MEDS: AZITHROMYCIN IVPB 500 MG/250 ML BAG IVPB SCH (09:34)
[2023-09-20] MEDS: ASCORBIC ACID 500 MG TABLET (FP) PO SCH (09:34)
[2023-09-21] MEDS: methylPREDNISolone NA SUCC 40 MG/1 ML VIAL IVPUSH SCH ×3 (02:26→21:33)
[2023-09-21] MEDS: dilTIAZem HCL 30 MG TABLET PO SCH ×3 (06:00→21:09)
[2023-09-21] MEDS: ARTIFICIAL TEARS OPHTHALMIC DROPS OU SCH ×3 (06:03→21:20)
[2023-09-21 07:10] LABS: HEMATOCRIT 29.5 % (32.4-45.2); HEMOGLOBIN 9.3 GM/dL (10.7-15.3); MCH 27.4 pg (25.7-33.7); MCHC 31.4 g/dl (32.0-36.0); MEAN CELL VOLUME 87.4 fl (80-96); MEAN PLT VOLUME 8.1 fl (7.5-11.1); PLATELET COUNT 335 10^3/uL (134-434); RBC 3.38 M/mm3 (3.60-5.2); RDW 15.8 % (11.6-15.6)
[2023-09-21 07:32] LABS: POTASSIUM 4.7 mmol/L (3.5-5.1)
[2023-09-21 07:36] LABS: BLOOD UREA NITROGEN 19.4 mg/dL (7-18)
[2023-09-21 07:37] LABS: CALCIUM 8.9 mg/dL (8.5-10.1)
[2023-09-21 07:38] LABS: ALBUMIN 2.8 g/dl (3.4-5.0)
[2023-09-21 07:39] LABS: CREATININE 0.5 mg/dL (0.55-1.3)
[2023-09-21 07:41] LABS: BILIRUBIN,TOTAL 0.1 mg/dL (0.2-1)
[2023-09-21 07:42] LABS: TOT PROT 5.4 g/dl (6.4-8.2)
[2023-09-21 09:07] LABS: ANISOCYTOSIS 0; MACROCYTOSIS 0
[2023-09-21] MEDS: metoPROLOL SUCCINATE 25 MG TAB.SR.24H (FP) PO SCH ×2 (10:42→21:09)
[2023-09-21] MEDS: SACUBITRIL/VALSARTAN 24 MG-26 MG TABLET PO SCH ×2 (10:42→21:09)
[2023-09-21] MEDS: ASCORBIC ACID 500 MG TABLET (FP) PO SCH (10:42)
[2023-09-21] MEDS: PANTOPRAZOLE 20 MG TABLET PO SCH (10:42)
[2023-09-21] MEDS: ENOXAPARIN NA (PORCINE) 30 MG/0.3 ML DISP.SYRIN SQ SCH (10:42)
[2023-09-21] MEDS: DOCUSATE SODIUM 100 MG CAPSULE (FP) PO SCH (10:42)
[2023-09-21] MEDS: FERROUS SO4 325 MG TABLET (FP) PO SCH (10:42)
[2023-09-21] MEDS: AZITHROMYCIN IVPB 500 MG/250 ML BAG IVPB SCH (10:43)
[2023-09-21] MEDS: CEFTRIAXONE 1 GM in DEXTROSE 5%-WATER - 50 ML IVPB SCH (10:43)
[2023-09-21] MEDS: ESCITALOPRAM OXALATE 5 MG/5 ML PO SCH (10:44)
[2023-09-21] MEDS: ERTAPENEM SODIUM 1 GM in SODIUM CHLORIDE 50 ML IVPB SCH (19:41)
[2023-09-22] MEDS: ARTIFICIAL TEARS OPHTHALMIC DROPS OU SCH ×3 (06:14→23:51)
[2023-09-22] MEDS: dilTIAZem HCL 30 MG TABLET PO SCH ×3 (06:14→23:50)
[2023-09-22] MEDS: ERTAPENEM SODIUM 1 GM in SODIUM CHLORIDE 50 ML IVPB SCH (10:11)
[2023-09-22] MEDS: ASCORBIC ACID 500 MG TABLET (FP) PO SCH (10:11)
[2023-09-22] MEDS: SACUBITRIL/VALSARTAN 24 MG-26 MG TABLET PO SCH ×2 (10:11→23:50)
[2023-09-22] MEDS: DOCUSATE SODIUM 100 MG CAPSULE (FP) PO SCH (10:11)
[2023-09-22] MEDS: metoPROLOL SUCCINATE 25 MG TAB.SR.24H (FP) PO SCH ×2 (10:11→23:50)
[2023-09-22] MEDS: methylPREDNISolone NA SUCC 40 MG/1 ML VIAL IVPUSH SCH ×2 (10:11→23:50)
[2023-09-22] MEDS: FERROUS SO4 325 MG TABLET (FP) PO SCH (10:11)
[2023-09-22] MEDS: PANTOPRAZOLE 20 MG TABLET PO SCH (10:11)
[2023-09-22] MEDS: AZITHROMYCIN IVPB 500 MG/250 ML BAG IVPB SCH (10:12)
[2023-09-22] MEDS: ENOXAPARIN NA (PORCINE) 30 MG/0.3 ML DISP.SYRIN SQ SCH (11:12)
[2023-09-22] MEDS: ESCITALOPRAM OXALATE 5 MG/5 ML PO SCH (11:12)
[2023-09-22] MEDS: ALBUTEROL SO4 2.5/IPRATROPIUM 0.5 INH SOL 3 ML VIAL.NEB. NEB PRN ×2 (11:16→20:48)
[2023-09-23] MEDS: ARTIFICIAL TEARS OPHTHALMIC DROPS OU SCH ×3 (05:53→21:42)
[2023-09-23] MEDS: dilTIAZem HCL 30 MG TABLET PO SCH ×3 (05:53→21:31)
[2023-09-23] MEDS: methylPREDNISolone NA SUCC 40 MG/1 ML VIAL IVPUSH SCH ×2 (09:55→21:39)
[2023-09-23] MEDS: DOCUSATE SODIUM 100 MG CAPSULE (FP) PO SCH (09:55)
[2023-09-23] MEDS: FERROUS SO4 325 MG TABLET (FP) PO SCH (09:55)
[2023-09-23] MEDS: metoPROLOL SUCCINATE 25 MG TAB.SR.24H (FP) PO SCH ×2 (09:55→21:31)
[2023-09-23] MEDS: ENOXAPARIN NA (PORCINE) 30 MG/0.3 ML DISP.SYRIN SQ SCH (09:55)
[2023-09-23] MEDS: PANTOPRAZOLE 20 MG TABLET PO SCH (09:55)
[2023-09-23] MEDS: AZITHROMYCIN IVPB 500 MG/250 ML BAG IVPB SCH (09:56)
[2023-09-23] MEDS: ASCORBIC ACID 500 MG TABLET (FP) PO SCH (09:57)
[2023-09-23] MEDS: ERTAPENEM SODIUM 1 GM in SODIUM CHLORIDE 50 ML IVPB SCH (09:57)
[2023-09-23] MEDS: SACUBITRIL/VALSARTAN 24 MG-26 MG TABLET PO SCH ×2 (09:57→21:31)
[2023-09-23] MEDS: ESCITALOPRAM OXALATE 5 MG/5 ML PO SCH (10:31)
[2023-09-23] MEDS: FLUTICASONE PROP 0.05% 16 GM NASAL SPRAY NS SCH (23:00)
[2023-09-24] MEDS: ARTIFICIAL TEARS OPHTHALMIC DROPS OU SCH ×3 (05:45→21:39)
[2023-09-24] MEDS: dilTIAZem HCL 30 MG TABLET PO SCH ×3 (05:46→21:40)
[2023-09-24] MEDS: AZITHROMYCIN IVPB 500 MG/250 ML BAG IVPB SCH (10:26)
[2023-09-24] MEDS: SACUBITRIL/VALSARTAN 24 MG-26 MG TABLET PO SCH ×2 (10:27→21:40)
[2023-09-24] MEDS: ASCORBIC ACID 500 MG TABLET (FP) PO SCH (10:27)
[2023-09-24] MEDS: DOCUSATE SODIUM 100 MG CAPSULE (FP) PO SCH ×2 (10:27→12:54)
[2023-09-24] MEDS: metoPROLOL SUCCINATE 25 MG TAB.SR.24H (FP) PO SCH ×2 (10:27→21:40)
[2023-09-24] MEDS: methylPREDNISolone NA SUCC 40 MG/1 ML VIAL IVPUSH SCH ×2 (10:27→21:40)
[2023-09-24] MEDS: FERROUS SO4 325 MG TABLET (FP) PO SCH (10:27)
[2023-09-24] MEDS: PANTOPRAZOLE 20 MG TABLET PO SCH (10:27)
[2023-09-24] MEDS: FLUTICASONE PROP 0.05% 16 GM NASAL SPRAY NS SCH (10:28)
[2023-09-24] MEDS: ERTAPENEM SODIUM 1 GM in SODIUM CHLORIDE 50 ML IVPB SCH (10:28)
[2023-09-24] MEDS: ESCITALOPRAM OXALATE 5 MG/5 ML PO SCH (10:29)
[2023-09-24] MEDS: ENOXAPARIN NA (PORCINE) 30 MG/0.3 ML DISP.SYRIN SQ SCH (10:30)
[2023-09-24 14:05] VITALS: BMI 23.5
[2023-09-24] MEDS: ALBUTEROL SO4 2.5/IPRATROPIUM 0.5 INH SOL 3 ML VIAL.NEB. NEB PRN (20:55)
[2023-09-25] MEDS: dilTIAZem HCL 30 MG TABLET PO SCH ×3 (06:32→21:52)
[2023-09-25] MEDS: ARTIFICIAL TEARS OPHTHALMIC DROPS OU SCH ×3 (06:32→21:52)
[2023-09-25] MEDS: PANTOPRAZOLE 20 MG TABLET PO SCH (09:31)
[2023-09-25] MEDS: FERROUS SO4 325 MG TABLET (FP) PO SCH (09:31)
[2023-09-25] MEDS: MULTIVITAMINS THER W-MINERALS COMBO TABLET (FP) PO SCH (09:31)
[2023-09-25] MEDS: SACUBITRIL/VALSARTAN 24 MG-26 MG TABLET PO SCH ×2 (09:31→21:52)
[2023-09-25] MEDS: ASCORBIC ACID 500 MG TABLET (FP) PO SCH (09:31)
[2023-09-25] MEDS: metoPROLOL SUCCINATE 25 MG TAB.SR.24H (FP) PO SCH ×2 (09:31→21:52)
[2023-09-25] MEDS: FLUTICASONE PROP 0.05% 16 GM NASAL SPRAY NS SCH (09:35)
[2023-09-25] MEDS: DOCUSATE SODIUM 100 MG CAPSULE (FP) PO SCH (09:36)
[2023-09-25] MEDS: ESCITALOPRAM OXALATE 5 MG/5 ML PO SCH (09:37)
[2023-09-25] MEDS: AZITHROMYCIN IVPB 500 MG/250 ML BAG IVPB SCH (09:37)
[2023-09-25] MEDS: ERTAPENEM SODIUM 1 GM in SODIUM CHLORIDE 50 ML IVPB SCH (09:38)
[2023-09-25] MEDS: ENOXAPARIN NA (PORCINE) 30 MG/0.3 ML DISP.SYRIN SQ SCH (09:39)
[2023-09-25] MEDS: methylPREDNISolone NA SUCC 40 MG/1 ML VIAL IVPUSH SCH ×2 (10:22→21:52)
[2023-09-25] MEDS ORDERED: clonazePAM 0.5 MG TABLET PO PRN (10:53)
[2023-09-26] MEDS: dilTIAZem HCL 30 MG TABLET PO SCH (05:28)
[2023-09-26] MEDS: ARTIFICIAL TEARS OPHTHALMIC DROPS OU SCH ×3 (05:28→21:25)
[2023-09-26] MEDS: FERROUS SO4 325 MG TABLET (FP) PO SCH (10:35)
[2023-09-26] MEDS: ASCORBIC ACID 500 MG TABLET (FP) PO SCH (10:35)
[2023-09-26] MEDS: metoPROLOL SUCCINATE 25 MG TAB.SR.24H (FP) PO SCH ×2 (10:35→21:25)
[2023-09-26] MEDS: MULTIVITAMINS THER W-MINERALS COMBO TABLET (FP) PO SCH (10:35)
[2023-09-26] MEDS: SACUBITRIL/VALSARTAN 24 MG-26 MG TABLET PO SCH ×2 (10:35→21:25)
[2023-09-26] MEDS: methylPREDNISolone NA SUCC 40 MG/1 ML VIAL IVPUSH SCH ×2 (10:35→21:30)
[2023-09-26] MEDS: ERTAPENEM SODIUM 1 GM in SODIUM CHLORIDE 50 ML IVPB SCH (10:35)
[2023-09-26] MEDS: ENOXAPARIN NA (PORCINE) 30 MG/0.3 ML DISP.SYRIN SQ SCH (10:35)
[2023-09-26] MEDS: PANTOPRAZOLE 20 MG TABLET PO SCH (10:35)
[2023-09-26] MEDS: DOCUSATE SODIUM 100 MG CAPSULE (FP) PO SCH (10:35)
[2023-09-26] MEDS: ESCITALOPRAM OXALATE 5 MG/5 ML PO SCH (10:36)
[2023-09-26] MEDS: FLUTICASONE PROP 0.05% 16 GM NASAL SPRAY NS SCH (10:36)
[2023-09-27] MEDS: ARTIFICIAL TEARS OPHTHALMIC DROPS OU SCH ×3 (05:41→23:20)
[2023-09-27] MEDS: metoPROLOL SUCCINATE 25 MG TAB.SR.24H (FP) PO SCH ×2 (11:03→23:20)
[2023-09-27] MEDS: PANTOPRAZOLE 20 MG TABLET PO SCH (11:03)
[2023-09-27] MEDS: MULTIVITAMINS THER W-MINERALS COMBO TABLET (FP) PO SCH (11:03)
[2023-09-27] MEDS: ASCORBIC ACID 500 MG TABLET (FP) PO SCH (11:03)
[2023-09-27] MEDS: FERROUS SO4 325 MG TABLET (FP) PO SCH (11:03)
[2023-09-27] MEDS: DOCUSATE SODIUM 100 MG CAPSULE (FP) PO SCH (11:03)
[2023-09-27] MEDS: FLUTICASONE PROP 0.05% 16 GM NASAL SPRAY NS SCH (11:04)
[2023-09-27] MEDS: SACUBITRIL/VALSARTAN 24 MG-26 MG TABLET PO SCH ×2 (11:04→23:20)
[2023-09-27] MEDS: methylPREDNISolone NA SUCC 40 MG/1 ML VIAL IVPUSH SCH ×2 (11:07→23:20)
[2023-09-27] MEDS: ESCITALOPRAM OXALATE 5 MG/5 ML PO SCH (11:07)
[2023-09-27] MEDS: ERTAPENEM SODIUM 1 GM in SODIUM CHLORIDE 50 ML IVPB SCH (11:07)
[2023-09-27] MEDS: ENOXAPARIN NA (PORCINE) 30 MG/0.3 ML DISP.SYRIN SQ SCH (11:07)
[2023-09-28] MEDS: ARTIFICIAL TEARS OPHTHALMIC DROPS OU SCH ×3 (06:24→21:24)
[2023-09-28] MEDS: PANTOPRAZOLE 20 MG TABLET PO SCH (10:12)
[2023-09-28] MEDS: metoPROLOL SUCCINATE 25 MG TAB.SR.24H (FP) PO SCH ×2 (10:12→21:22)
[2023-09-28] MEDS: FERROUS SO4 325 MG TABLET (FP) PO SCH (10:12)
[2023-09-28] MEDS: ASCORBIC ACID 500 MG TABLET (FP) PO SCH (10:12)
[2023-09-28] MEDS: SACUBITRIL/VALSARTAN 24 MG-26 MG TABLET PO SCH ×2 (10:12→21:22)
[2023-09-28] MEDS: methylPREDNISolone NA SUCC 40 MG/1 ML VIAL IVPUSH SCH ×2 (10:12→21:22)
[2023-09-28] MEDS: MULTIVITAMINS THER W-MINERALS COMBO TABLET (FP) PO SCH (10:12)
[2023-09-28] MEDS: DOCUSATE SODIUM 100 MG CAPSULE (FP) PO SCH (10:13)
[2023-09-28] MEDS: FLUTICASONE PROP 0.05% 16 GM NASAL SPRAY NS SCH (10:13)
[2023-09-28] MEDS ORDERED: FUROSEMIDE 40 MG/4 ML INJECTABLE VIAL IVPUSH ONE (10:26)
[2023-09-28] MEDS: ERTAPENEM SODIUM 1 GM in SODIUM CHLORIDE 50 ML IVPB SCH (10:34)
[2023-09-28] MEDS: ESCITALOPRAM OXALATE 5 MG/5 ML PO SCH (10:35)
[2023-09-28 18:59] VITALS: RESP 20
[2023-09-29 00:42] VITALS: BP 131/74; PULSE 74; TEMP 97.8
== END 2023-09-28 23:30 | disposition hospice, inpatient (51) | DRG 189 ==
LOC: JER 12:45 → JERBED 17:38 → J4W 09-19 03:25
PROVIDERS: ADMIT Internal Medicine; ATTEND Internal Medicine
DX: J96.21 Acute and chronic respiratory failure with hypoxia (principal); J44.1 Chronic obstructive pulmonary disease with (acute) exacerbation; I50.42 Chronic combined systolic (congestive) and diastolic (congestive) heart failure; B97.4 Respiratory syncytial virus as the cause of diseases classified elsewhere; J96.22 Acute and chronic respiratory failure with hypercapnia; I11.0 Hypertensive heart disease with heart failure; F17.210 Nicotine dependence, cigarettes, uncomplicated; K21.9 Gastro-esophageal reflux disease without esophagitis
CPT/HCPCS: 0241U-QW; 36415; 71045-TC-FY; 80048; 80053; 81003; 82550; 82553; 82803; 83605; 83735; 83880; 84100; 84484; 85025; 85610; 85730; 86850; 86900; 86901; 87040; 87086; 87186; 93005; 93010; 94640; 94660; 99285-25; J1100